=== PATIENT | female | born 1970 | race Caucasian/White ===

== ENCOUNTER → 2021-04-15 | Outpatient (CLI) | payer BC ==
--- NOTE | 2021-04-15 13:26 | Diagnostic Imaging Report ---
PROCEDURE: CT abdomen and pelvis without contrast. TECHNIQUE: Multiple contiguous axial images were obtained through the abdomen and pelvis without the use of intravenous contrast. Auto Exposure Controls were utilized during the CT exam to meet ALARA standards for radiation dose reduction. INDICATION: Right flank pain for 5 days. No prior studies are available for comparison. Lung bases are clear. Liver and gallbladder are unremarkable. No biliary ductal dilatation is seen. Pancreas and spleen are unremarkable. No adrenal mass is detected. No definite renal calculi or hydronephrosis is identified. No ureteral or bladder calculi are identified. Aorta is nonaneurysmal. The small and large bowel loops are normal caliber. No bowel obstruction is seen. There is abnormal soft tissue masslike density in the right colon in the region of the cecum. A mass at this location cannot be excluded. Moderate stool transverse and descending colon is seen. The uterus and bladder are unremarkable. No free fluid identified. No definite lymphadenopathy in the abdomen or pelvis is seen. Bony structures are nonacute. IMPRESSION: 1. No evidence of urinary tract calculi or obstruction. 2. Findings are suspicious for a mass in the right colon in the region of the cecum. Colonoscopy is recommended for further evaluation. Dictated by: Dictated on workstation # [id number]
== END ==
LOC: RAD FS 13:02
PROVIDERS: ATTEND Nurse Practitioner Family
DX: R31.1 Benign essential microscopic hematuria (principal); M54.9 Dorsalgia, unspecified
CPT/HCPCS: 74176